=== PATIENT | female | born 1945 | race Native Hawaiian/Other Pacific Islander ===

== ENCOUNTER 2016-12-06 11:20 | Emergency (ER) | payer OTHER ==
[~2016-12-06] VITALS: Ht 152.4 cm; Wt 47.6 kg
[~2016-12-06 11:20] MED LIST: ACIDOPHILU3 PO; ALPH-E-MIXED400 UNIT OR; ALPR1TAB61 PO; ATEN50TA36 PO; CIPRO250 MG PO; CLARITIN10 MG OR; CLARITIN10 MG PO; CLONIDINE0.2 MG OR; DILAUDID4 MG PO; ENALAPRIL20 MG OR; ENALAPRIL20 MG PO; FERROUS SULF325 M1 OR; FERROUS SULF325 M1 PO; FLOVENT HFA110 MCG IN; FLUT0.05 NAS; HYDR4TAB12 PO; LEVOTHROID75 MCG PO; LORA10TA3 PO; MEDROL DOSEPAK4 MG PO; NEXIUM40 M1 OR; NEXIUM40 M1 PO; NIRAVAM1 MG PO; ONE DAILY 5050 PLUS PO; PERMETHRIN5 % EX; POT GLUCONAT595 MG PO; PROM25TA52 PO; UNITH DIRECT75 MCG PO; VITAMIN E 400 UNIT PO; Z-PAK PO
[2016-12-06 12:50] LABS: PLATELET COUNT 214 K/uL (152-353)
[2016-12-06 13:15] LABS: POTASSIUM 4.3 mmol/L (3.6-5.2)
[2016-12-06 15:56] VITALS: BP 180/84; TEMP 98.5
== END 2016-12-06 15:56 | disposition home or self-care (01) ==
LOC: ED 11:20
PROVIDERS: Specialist
DX: N39.0 Urinary tract infection, site not specified (principal); K41.90 Unilateral femoral hernia, without obstruction or gangrene, not specified as recurrent
CPT/HCPCS: 80053; 81000; 83605; 83735; 84100; 85027; 87077; 87086; 87088; 87186; 99283; Q9963

== ENCOUNTER 2019-03-14 13:13 | Emergency (ER) | payer OTHER ==
[~2019-03-14] VITALS: Ht 157.5 cm; Wt 45.4 kg
[2019-03-14 13:43] VITALS: BP 149/83; TEMP 98
== END 2019-03-14 17:45 | disposition home or self-care (01) ==
LOC: ED 13:13
PROC: 2W3LX1Z Immobilization of Right Lower Extremity using Splint (ICD-10-PCS; principal; 2019-03-14)
DX: S82.154A Nondisplaced fracture of right tibial tuberosity, initial encounter for closed fracture (principal); W01.198A Fall on same level from slipping, tripping and stumbling with subsequent striking against other object, initial encounter; Y92.89 Other specified places as the place of occurrence of the external cause
CPT/HCPCS: 96372; 99283; J2175

== ENCOUNTER 2019-03-20 20:46 | Outpatient (CLI) | payer OTHER | END 2019-03-20 20:48 | disposition short-term general hospital (02) | LOC: AMB 20:46 | DX: R22.41 Localized swelling, mass and lump, right lower limb (principal); W18.39XD Other fall on same level, subsequent encounter | CPT/HCPCS: A0425; A0429 ==

== ENCOUNTER 2019-03-20 20:56 | Emergency (ER) | payer OTHER ==
[~2019-03-20] VITALS: Ht 157.5 cm; Wt 54.4 kg
[2019-03-20 21:54] LABS: PLATELET COUNT 252 K/uL (152-353)
[2019-03-20 22:13] LABS: POTASSIUM 3.1 mmol/L (3.6-5.2)
[2019-03-21 05:52] VITALS: TEMP 98.3
[2019-03-21 08:34] VITALS: BP 110/68
== END 2019-03-21 08:34 | disposition home or self-care (01) ==
LOC: ED 20:56
PROVIDERS: Emergency Medicine
PROC: 2W3LX1Z Immobilization of Right Lower Extremity using Splint (ICD-10-PCS; principal; 2019-03-20)
DX: S92.491A Other fracture of right great toe, initial encounter for closed fracture (principal); F10.129 Alcohol abuse with intoxication, unspecified
CPT/HCPCS: 36415; 80053; 80307; 80320; 81000; 82550; 82962; 85027; 87077; 87086; 87088; 87186; 99283; J0696

== ENCOUNTER 2019-05-20 13:57 | Emergency (ER) | payer OTHER ==
[~2019-05-20] VITALS: Ht 157.5 cm; Wt 54.4 kg
[2019-05-20 15:00] VITALS: BP 141/68; TEMP 97.9
== END 2019-05-20 15:00 | disposition home or self-care (01) ==
LOC: ED 13:57
DX: S60.460A Insect bite (nonvenomous) of right index finger, initial encounter (principal); W57.XXXA Bitten or stung by nonvenomous insect and other nonvenomous arthropods, initial encounter; Y92.89 Other specified places as the place of occurrence of the external cause
CPT/HCPCS: 99282

== ENCOUNTER 2019-05-30 20:40 | Outpatient (CLI) | payer OTHER | END 2019-05-30 20:51 | disposition short-term general hospital (02) | LOC: AMB 20:40 | DX: R41.82 Altered mental status, unspecified (principal); R53.1 Weakness | CPT/HCPCS: A0425; A0427 ==

== ENCOUNTER 2019-05-30 20:52 | Emergency (ER) | payer OTHER ==
[~2019-05-30] VITALS: Ht 157.5 cm; Wt 54.4 kg
[2019-05-30 20:52] VITALS: TEMP 97.9
[2019-05-30 21:15] LABS: PLATELET COUNT 253 K/uL (152-353)
[2019-05-30 21:20] LABS: POTASSIUM 4.1 mmol/L (3.6-5.2); SODIUM 140 mmol/L (136-145)
[2019-05-30 22:15] LABS: PARTIAL THROMBOPLASTIN TIME 23.9 SECONDS (24.5-33.6)
[2019-05-30 23:53] VITALS: BP 152/78
== END 2019-05-30 23:55 | disposition short-term general hospital (02) ==
LOC: ED 20:52
PROVIDERS: Family Medicine
DX: I63.512 Cerebral infarction due to unspecified occlusion or stenosis of left middle cerebral artery (principal); I48.91 Unspecified atrial fibrillation
CPT/HCPCS: 36415; 51702; 80053; 80320; 82550; 83735; 84484; 85027; 85610; 85730; 93005; 99285

== ENCOUNTER 2020-01-10 16:40 | Inpatient (IN) | payer OTHER ==
[2020-01-10] VITALS (8 sets, daily range): BP systolic 95–160; BP diastolic 44–83; TEMP 98.2; Ht 152.4 cm; Wt 43.3 kg
[~2020-01-10] VITALS: Ht 152.4 cm; Wt 43.3 kg
[2020-01-10 17:33] LABS: PLATELET COUNT 338 K/uL (152-353)
[2020-01-10 18:25] LABS: POTASSIUM 4.3 mmol/L (3.6-5.2); SODIUM 139 mmol/L (136-145)
[2020-01-11] VITALS: BP 116/57; TEMP 99.5
[2020-01-11 04:00] VITALS: BP 101/64; TEMP 98.6
[2020-01-11 08:00] VITALS: BP 96/38; TEMP 98.5
[2020-01-11 12:00] VITALS: BP 86/43; TEMP 98.4
[2020-01-11 12:47] LABS: PLATELET COUNT 204 K/uL (152-353)
[2020-01-11 12:54] LABS: POTASSIUM 4.1 mmol/L (3.6-5.2)
[2020-01-11 16:00] VITALS: BP 111/68; TEMP 98.7
[2020-01-11 20:00] VITALS: BP 143/67; TEMP 98.8
[2020-01-12] VITALS (7 sets, daily range): BP systolic 119–146; BP diastolic 55–83; TEMP 97.9–110
[2020-01-13 04:00] VITALS: BP 126/68; TEMP 97.5
[2020-01-13 05:49] LABS: PLATELET COUNT 126 K/uL (152-353)
[2020-01-13 06:03] LABS: POTASSIUM 4.1 mmol/L (3.6-5.2)
[2020-01-13 08:00] VITALS: BP 104/48; TEMP 97.9
[2020-01-13 12:00] VITALS: BP 126/60; TEMP 97.9
[2020-01-13 16:00] VITALS: BP 132/64; TEMP 98.4
== END 2020-01-13 19:56 | disposition home or self-care (01) | DRG 872 ==
LOC: ED 16:44 → MED/SURG 19:00
PROVIDERS: Family Medicine; Internal Medicine; ADMIT Emergency Medicine
DX: A41.89 Other specified sepsis (principal); N39.0 Urinary tract infection, site not specified; I10 Essential (primary) hypertension; Z72.0 Tobacco use; F03.90 Unspecified dementia, unspecified severity, without behavioral disturbance, psychotic disturbance, mood disturbance, and anxiety; Z86.73 Personal history of transient ischemic attack (TIA), and cerebral infarction without residual deficits
CPT/HCPCS: 36415; 51702; 80053; 80307; 80320; 81000; 82550; 82962; 83735; 83880; 84100; 84484; 85027; 87077; 87086; 87088; 87186; 87635; 93005; 99284; J0696; J1200; J3486; U0002